=== PATIENT | male | born 1985 | race Caucasian/White ===

== ENCOUNTER 2019-01-15 08:04 | Day surgery (SDC) | payer OTHER ==
[~2019-01-15] VITALS: Ht 175.3 cm; Wt 92.4 kg
[~2019-01-15 08:04] MED LIST: LIDOCAINE 1% MDV 20ML VIAL SQ PRN; LISI10TA4 PO; LR 1,000 ML IV ONE; MELO15TA28 PO
[2019-01-15] MEDS ORDERED: dexameTHASONE 10 MG/1 ML VIAL PRES.FREE (J1100) ONE (08:05)
[2019-01-15] MEDS ORDERED: EPINEPHrine INJ 1 MG/ML 1ML AMP ONE (08:05)
[2019-01-15] MEDS ORDERED: ROPIvacaine 0.5% 30 ML INJECTION (J2795 PER 1MG) ONE (08:05)
[2019-01-15] MEDS ORDERED: ONDANSETRON 4MG/2ML VIAL (J2405) As Ordered ONE (08:12)
[2019-01-15] MEDS ORDERED: LIDOCAINE 2% INJ 100 MG/5 ML SDV (FOR ANES.) As Ordered ONE (08:12)
[2019-01-15] MEDS ORDERED: dexameTHASONE 4 MG/ML 1ML VIAL (J1100) As Ordered ONE (08:12)
[2019-01-15] MEDS ORDERED: PROPOFOL 200 MG/20 ML VIAL As Ordered ONE (08:12)
[2019-01-15] MEDS ORDERED: MIDAZOLAM INJ 2 MG/2 ML VIAL (J2250) As Ordered ONE ×2 (08:16→09:48)
[2019-01-15] MEDS ORDERED: fentaNYL 100 MCG/2 ML INJECTION (J3010) As Ordered ONE ×3 (08:16→12:51)
[2019-01-15] MEDS ORDERED: ceFAZolin 2 GM/D5W 50 ML IV BAG (J0690 PER 500MG) As Ordered ONE (08:28)
[2019-01-15] MEDS: MIDAZOLAM INJ 2 MG/2 ML VIAL (J2250) IV SCH ×2 (09:55→10:00)
[2019-01-15] MEDS: fentaNYL 100 MCG/2 ML INJECTION (J3010) IV SCH ×2 (09:55→10:00)
[2019-01-15] MEDS ORDERED: BUPIVACAINE HCL 0.25% 10 ML VIAL As Ordered ONE (10:14)
[2019-01-15] MEDS ORDERED: ACETAMINOPHEN 1000MG 100ML IV BTL (OFIRMEV) (J0131 PER 10MG) As Ordered ONE (12:51)
--- NOTE | 2019-01-15 13:12 | REP ---
Left knee: Two views. History: Fluoro guidance, left knee arthroscopy. 20.8 seconds is reported as fluoro time. Findings: A sequence of two last image hold fluoroscopically obtained spot radiographs of the left knee document metallic probe position. Electronically Signed by Venu Todd MD 01/15/2019 05:09 P
[2019-01-15] MEDS ORDERED: oxyCODONE 5MG TAB As Ordered ONE (13:53)
[2019-01-15] MEDS: oxyCODONE 5MG TAB PO PRN ×2 (13:55→14:40)
[2019-01-15] MEDS ORDERED: METOCLOPRAMIDE INJ 10MG/2ML VIAL (J2765) IV PRN (14:00)
[2019-01-15] MEDS ORDERED: ONDANSETRON 4MG/2ML VIAL (J2405) IV PRN (14:00)
[2019-01-15] MEDS ORDERED: LR 1,000 ML IV SCH ×2 (14:00)
[2019-01-15] MEDS ORDERED: PERCOCET 5MG/325MG TAB PO PRN (14:00)
[2019-01-15] MEDS: MEPERIDINE INJ 25 MG/ML VIAL (J2175) IV PRN ×2 (14:10→14:15)
[2019-01-15] MEDS: fentaNYL 100 MCG/2 ML INJECTION (J3010) IV PRN ×4 (14:10→14:25)
--- NOTE | 2019-01-15 14:29 | RO ---
DATE OF PROCEDURE: 01/15/2019 PREOPERATIVE DIAGNOSES: 1. Left knee recurrent patellar instability. 2. Left knee patellar chondromalacia. POSTOPERATIVE DIAGNOSES: 1. Left knee recurrent patellar instability. 2. Left knee patellar chondromalacia. 3. Left knee synovitis. PROCEDURE: 1. Left knee arthroscopy with chondroplasty and synovectomy. 2. Left knee medial patellofemoral ligament reconstruction with allograft. SURGEON: Jean Claude Garcia MD MOTOR DRIVER: YANN Butcher ANESTHESIA: General with preoperative abductor block. IV FLUIDS: Lactated Ringer's. ESTIMATED BLOOD LOSS: 25 mL. IMPLANTS USED: Arthrex 3 mm SutureTak times two and 5.5 mm Corkscrew times one with a semitendinosus allograft. CLOSURE: Nylon. PROCEDURE: Patient identified in the preoperative holding area. The left knee marked by myself. He had a preoperative nerve block. He was brought the operating room, placed supine on a well padded OR table. General anesthesia was induced. Exam under anesthesia revealed three quadrants of lateral patellar mobility to endpoint. Two quadrants of medial patellar mobility. Grade A Wayne, stable to varus and valgus stress, full range of motion. A well-padded tourniquet applied left side. The left leg was then prepped and draped in the normal sterile fashion from the toes up to the tourniquet. Prior to incision a time out was performed per hospital protocol. He received appropriate IV antibiotics within 1 hour of incision. Rommel Rodriguez was present for the entire procedure and participated in all essential portions of the procedure. This included patient positioning, draping, holding the arthroscope, holding retractors, assisting with whip stitching the allograft, suture passage and wound closure. He also was instrumental stabilizing the patella during drilling and placement of anchors. The left knee was insufflated with lactated Ringer's. A standard anterolateral portal made with an 11 blade, 30 degree arthroscope introduced into the joint. Diagnostic arthroscopy revealed grade 1 chondromalacia patella with a central fissure. Grade 1 the trochlea. There was moderate synovitis diffusely with a band of thickened scar tissue in this suprapatellar pouch. No loose bodies. Medial compartment was entered. There was grade 1 chondromalacia. No medial meniscus tears. ACL appeared unremarkable. Legs brought into figure-of-4 position. There are no lateral meniscus tears, but there was again grade 1 chondromalacia diffusely. An anteromedial portal was created under direct visualization. On probing of the patella, the entire central patellar cartilage was softened and then the probe fell into that trough. The edges of the chondral fissure were well approximated, although I could displace it with a probe. It did not seem overly unstable and I felt that a chondroplasty would result in removal of a significant portion of articular cartilage that was not necessary. I did use the shaver and cautery to perform a synovectomy. No loose bodies. The knee was irrigated and drained. The semitendinosus allograft was thawed on the back table and was prepared by my wheelchair van operator first responder. A longitudinal incision was made to 15 blade along the medial border of the patella. Sharp dissection through layers one and two, down onto the medial patellar facette without violating the capsule. Metzenbaum scissors used to dissect between layers two and three medially along the path of the MPFL. A 15 blade was used to elevate a flap of periosteum off the anterior surface of the patella and then a rongeur used to create a trough in the medial patella. I then placed two Arthrex 3 mm BioComposite SutureTak, one at the equator and the other a centimeter proximal. The both had great fixation. An incision was then made between the abductor tubercle and medial epicondyle. Subcutaneous dissection with Metzenbaum scissors. Fascia was opened carefully with scissors. The attachment for the MPFL between the abductor tubercle and the epicondyle was palpated and marked with a K-wire. Large C-arm was then used, AP and lateral views, to determine Shottle's point. K-wires was repositioned. Once the appropriate position was confirmed, I then passed the sutures from the SutureTak between layers two and three exiting at the K-wire and then they were wrapped around the K-wire. The knee was flexed and extended and I was able to confirm the isometric point. The allograft was then secured to the medial border of the patella with a curve free needle. The midpoint of the graft was secured to the trough. Excess suture trimmed and discarded. Those were double loaded anchors was led the great fixation. The tails of the allograft had Vicryl passing stitches. Those were used to pass the graft between layers two and three exiting at the medial incision. I then marked the spot where the K-wire was located, that was removed and then the punch used to create a socket in the medial femur. The punch tap was also used. 5.5 mm corkscrew anchor BioComposite was placed. Fortunately this lost fixation and for some reason two of them actually broke in half. On the third, I retapped with the punch and then the tap then that third anchor had great fixation. This was double loaded Corkscrew. One set of sutures from the corkscrew were then passed through one limb of the allograft and those steps repeated for the other limbs. The free limb from the corkscrew was then used to reduce the allograft tails to than anchor and then I checked lateral patellar excursion with the knee had 0, 10, 20, 30, 40 and 50 degrees. Once I determined this would nicely restore lateral patellar translation, a total of five locking passes were made through each tail of the graft. Free limb of the suture was used to reduce the allograft to the anchor and then knots were tied by hand. Those were repeated for both allograft tails. Excess suture and graft was trimmed and discarded. I repeated lateral patellar translation assessment and this again was found to nicely restore lateral patellar translation without over tightening things. I should mention that the graft was secured with the knee in approximately 40 degrees of flexion. All incisions were reirrigated. The medial wound was closed with #2-0 Vicryl in two layers and then a running nylon. Arthroscopy portals closed with nylon. The medial retinaculum was repaired with figure-of-8 and #0 Vicryl sutures with the knee in 40 degrees of flexion. The knee was reirrigated and then #2-0 Vicryl running nylon. Tourniquet was let down with excellent reperfusion. Bulky sterile dressing was applied and the knee was placed into hinged knee brace, locked in extension. All counts were correct times two. Complications none. He will have full dose aspirin for deep vein thrombosis (DVT) prophylaxis.
[2019-01-15 15:00] VITALS: BP 144/99
== END 2019-01-15 15:45 | disposition home or self-care (01) ==
LOC: M SDC 08:04
PROVIDERS: ATTEND Orthopaedic Surgery
DX: M25.362 Other instability, left knee (principal); M22.42 Chondromalacia patellae, left knee; M65.862 Other synovitis and tenosynovitis, left lower leg; I10 Essential (primary) hypertension; Z79.899 Other long term (current) drug therapy
CPT/HCPCS: 27427; 29877; 64447; 76000; C1713; C1762; J0131; J0690; J1100; J2175; J2250; J2405; J2795; J3010